=== PATIENT | female | born 1980 | race African-American/Black ===

== ENCOUNTER 2020-05-04 15:33 | Inpatient (IN) ==
[2020-05-04 19:05] LABS: Basophils # 0.1 10*3/uL (0.0-0.2); Basophils % 0.5 % (0.0-0.8); Eosinophils # 0.6 10*3/uL (0.0-0.87); Eosinophils % 5.7 % (0.00-10.9); Hematocrit 29.9 VOL% (35.7-47.0); Hemoglobin 9.3 GM/DL (12.0-16.0); Immature Granulocytes % 3.1 %; Immature Granulocytes Absolute 0.34 #; Lymphocytes # 0.9 10*3/uL (1.4-4.0); Lymphocytes % 8.6 % (21.3-54.2); Mean Corpuscular HGB Conc 31.1 GM/DL (32-36); Mean Corpuscular Volume 98.7 FL (87-102); Mean Platelet Volume 10.5 FL (9.6-12.0); Monocytes % 12.9 % (1.7-12.7); NRBC # 0.02 10*3/uL; Neutrophils % 69.2 % (38.7-73.9); Platelet Count 190 T/CUMM (130-400); Red Blood Count 3.03 MC/CUMM (3.8-5.5); Red Cell Distribution Width 17.9 % (9.3-17.3); White Blood Count 10.9 T/CUMM (4-12)
[2020-05-04 19:06] LABS: Alanine Aminotransferase 35 U/L (13-56); Albumin 3.1 G/DL (3.4-5.0); Alkaline Phosphatase 90 U/L (45-117); Aspartate Amino Transferase 18 U/L (0-37); Bilirubin,Total < 0.39 MG/DL (0.2-1.0); Blood Urea Nitrogen 25 MG/DL (7-18); Calcium 8.6 MG/DL (8.5-10.1); Estimated Glom Filtration Rate 12 ML/MIN; Glucose 174 MG/DL (74-106); Osmolality,Calculated 277.1 MOS/KG (273-304); Total Protein 6.7 G/DL (6.4-8.3)
[2020-05-04] MEDS ORDERED: ZALEPLON 5 MG CAPSULE PO PRN (20:10)
[2020-05-04] MEDS ORDERED: GLUCAGON 1 MG VIAL IM PRN (20:10)
[2020-05-04] MEDS ORDERED: ONDANSETRON 4 MG/2 ML VIAL IV PRN (20:10)
[2020-05-04] MEDS ORDERED: ACETAMINOPHEN 325 MG TABLET PO PRN (20:10)
[2020-05-04] MEDS ORDERED: DEXTROSE 50% 25 GM/50 ML VIAL IV PRN ×2 (20:10)
[2020-05-04] MEDS ORDERED: MORPHINE 4 MG/1 ML VIAL IV PRN (21:01)
[2020-05-04] MEDS: HEPARIN 5,000 UNIT/1 ML VIAL SUBCUT SCH (23:30)
[2020-05-04] MEDS: INSULIN REGULAR 100 UNIT/ML SUBCUT SCH (23:31)
[2020-05-05] MEDS: diphenhydrAMINE CAP 25 MG CAPSULE PO PRN ×3 (03:48→21:48)
[2020-05-05] MEDS: NITROGLYCERIN 2% OINT 1 INCH/GM PACK TOP SCH ×2 (03:49→06:03)
[2020-05-05] MEDS: HEPARIN 5,000 UNIT/1 ML VIAL SUBCUT SCH ×3 (06:04→21:48)
[2020-05-05 06:57] LABS: Basophils % 0.4 % (0.0-0.8); Eosinophils # 0.7 10*3/uL (0.0-0.87); Eosinophils % 6.1 % (0.00-10.9); Hemoglobin 8.7 GM/DL (12.0-16.0); Immature Granulocytes % 2.2 %; Immature Granulocytes Absolute 0.24 #; Lymphocytes # 1.5 10*3/uL (1.4-4.0); Lymphocytes % 13.8 % (21.3-54.2); Mean Corpuscular HGB Conc 32.2 GM/DL (32-36); Mean Corpuscular Volume 98.2 FL (87-102); Mean Platelet Volume 10.6 FL (9.6-12.0); Neutrophils % 64.5 % (38.7-73.9); Platelet Count 172 T/CUMM (130-400); Red Blood Count 2.75 MC/CUMM (3.8-5.5); White Blood Count 11.1 T/CUMM (4-12)
[2020-05-05 07:19] LABS: Risk Ratio 1.71
[2020-05-05 07:22] LABS: Albumin 2.7 G/DL (3.4-5.0); Bilirubin,Total 0.9 MG/DL (0.2-1.0); Calcium 8.2 MG/DL (8.5-10.1); Total Protein 6.3 G/DL (6.4-8.3)
[2020-05-05] MEDS: INSULIN REGULAR 100 UNIT/ML SUBCUT SCH ×3 (08:13→16:40)
[2020-05-05] MEDS: PANTOPRAZOLE 40 MG TABLET PO SCH (08:14)
[2020-05-05] MEDS ORDERED: INSULIN REGULAR 10 UNIT, CALCIUM GLUCONATE 1,000 MG in DEXTROSE 10% 250 ML IV ONE (08:30)
[2020-05-05] MEDS: carvediloL 12.5 MG TABLET PO SCH ×2 (10:27→21:48)
[2020-05-05] MEDS: amLODIPine 10 MG TABLET PO SCH (10:28)
[2020-05-05] MEDS: ASPIRIN EC 81 MG TABLET PO SCH (10:28)
[2020-05-05] MEDS: hydrOXYzine HCL 25 MG TABLET PO PRN ×2 (15:15→21:48)
[2020-05-05] MEDS ORDERED: TRIAMCINOLONE 0.1% OINT 15 GM TUBE TOP PRN (15:51)
[2020-05-06] MEDS: INSULIN REGULAR 100 UNIT/ML SUBCUT SCH ×5 (00:31→21:06)
[2020-05-06 06:21] LABS: Basophils % 0.4 % (0.0-0.8); Eosinophils # 0.8 10*3/uL (0.0-0.87); Eosinophils % 10.8 % (0.00-10.9); Hematocrit 27.3 VOL% (35.7-47.0); Hemoglobin 8.8 GM/DL (12.0-16.0); Immature Granulocytes % 2.3 %; Immature Granulocytes Absolute 0.16 #; Lymphocytes # 1.7 10*3/uL (1.4-4.0); Lymphocytes % 24.1 % (21.3-54.2); Mean Corpuscular HGB Conc 32.2 GM/DL (32-36); Mean Corpuscular Volume 97.5 FL (87-102); Mean Platelet Volume 10.6 FL (9.6-12.0); Neutrophils % 48.4 % (38.7-73.9); Platelet Count 175 T/CUMM (130-400); Red Cell Distribution Width 17.6 % (9.3-17.3); White Blood Count 7.1 T/CUMM (4-12)
[2020-05-06] MEDS: diphenhydrAMINE CAP 25 MG CAPSULE PO PRN (06:34)
[2020-05-06] MEDS: HEPARIN 5,000 UNIT/1 ML VIAL SUBCUT SCH (06:34)
[2020-05-06 07:02] LABS: Calcium 8.2 MG/DL (8.5-10.1)
[2020-05-06] MEDS: ASPIRIN EC 81 MG TABLET PO SCH (08:31)
[2020-05-06] MEDS: amLODIPine 10 MG TABLET PO SCH (08:31)
[2020-05-06] MEDS: carvediloL 12.5 MG TABLET PO SCH ×2 (08:31→21:06)
[2020-05-06] MEDS: PANTOPRAZOLE 40 MG TABLET PO SCH (08:31)
[2020-05-06] MEDS ORDERED: HEPARIN DRIP 25,000 UNITS/500 ML PREMIX IV SCH (09:30)
[2020-05-06 10:22] LABS: PT Patient Result 10.9 SECS (9.8-11.9)
[2020-05-06] MEDS ORDERED: WARFARIN 2.5 MG TABLET PO ONE (10:40)
[2020-05-06] MEDS: hydrALAZINE 25 MG TABLET PO SCH ×3 (11:33→21:06)
[2020-05-06] MEDS: predniSONE 10 MG TABLET PO SCH (11:33)
[2020-05-06] MEDS ORDERED: LIDOCAINE 4% CREAM 5 GM TUBE TOP ONE (12:13)
[2020-05-06] MEDS ORDERED: WARFARIN 5 MG TABLET PO SCH (18:00)
[2020-05-07] MEDS: diphenhydrAMINE CAP 25 MG CAPSULE PO PRN ×2 (01:52→09:56)
[2020-05-07 06:01] LABS: Basophils # 0.1 10*3/uL (0.0-0.2); Basophils % 0.4 % (0.0-0.8); Eosinophils # 0.5 10*3/uL (0.0-0.87); Eosinophils % 3.4 % (0.00-10.9); Hematocrit 28.2 VOL% (35.7-47.0); Immature Granulocytes % 1.3 %; Immature Granulocytes Absolute 0.18 #; Lymphocytes # 1.3 10*3/uL (1.4-4.0); Lymphocytes % 8.8 % (21.3-54.2); Mean Corpuscular HGB Conc 31.9 GM/DL (32-36); Mean Corpuscular Volume 98.6 FL (87-102); Mean Platelet Volume 10.8 FL (9.6-12.0); Monocytes % 10.8 % (1.7-12.7); Neutrophils % 75.3 % (38.7-73.9); Platelet Count 189 T/CUMM (130-400); Red Blood Count 2.86 MC/CUMM (3.8-5.5); Red Cell Distribution Width 17.9 % (9.3-17.3); White Blood Count 14.3 T/CUMM (4-12)
[2020-05-07 06:23] LABS: Calcium 8.3 MG/DL (8.5-10.1)
[2020-05-07] MEDS ORDERED: hydrALAZINE 25 MG TABLET PO SCH (07:27)
[2020-05-07] MEDS: INSULIN REGULAR 100 UNIT/ML SUBCUT SCH ×2 (07:44→11:28)
[2020-05-07 08:32] LABS: PT Patient Result 10.9 SECS (9.8-11.9)
[2020-05-07] MEDS: predniSONE 10 MG TABLET PO SCH (08:36)
[2020-05-07] MEDS: ASPIRIN EC 81 MG TABLET PO SCH (08:37)
[2020-05-07] MEDS: carvediloL 12.5 MG TABLET PO SCH (08:37)
[2020-05-07] MEDS: PANTOPRAZOLE 40 MG TABLET PO SCH (08:37)
[2020-05-07] MEDS ORDERED: APIXABAN 5 MG TABLET PO SCH (09:00)
[2020-05-07] MEDS: amLODIPine 10 MG TABLET PO SCH (09:51)
[2020-05-07 11:37] VITALS: BP 156/85
[2020-05-14] MEDS ORDERED: APIXABAN 2.5 MG TABLET PO SCH (09:00)
== END 2020-05-07 13:48 | disposition home or self-care (01) | DRG 175 ==
LOC: N.EDINP 15:33 → N.ED 15:33 → N.EDINP 21:15 → N.3E 21:29
PROVIDERS: ADMIT Internal Medicine; ATTEND Internal Medicine